=== PATIENT | male | born 1960 | race Native Hawaiian/Other Pacific Islander ===

== ENCOUNTER 2022-06-09 09:29 | Outpatient (CLI) | payer MEDICAID, SELFPAY ==
[2022-06-09 14:01] LABS: Basophils Absolute Auto 0.02 K/uL (0.00-0.30); Basophils Percent Auto 0.3 % (0.0-3.0); Eosinophils Absolute Auto 0.13 K/uL (0.00-0.50); Eosinophils Percent Auto 1.8 % (0.0-7.0); Hematocrit 44.8 % (37.0-53.0); Hemoglobin* 14.8 gm/dL (13.5-17.5); Immature Granulocytes Abs Auto 0.02 K/uL (0.00-0.30); Immature Granulocytes Pct Auto 0.3 %; Lymphocytes Absolute Auto 1.88 K/uL (0.90-2.90); Lymphocytes Percent Auto 26.6 % (20-44); Mean Corpuscular HGB Conc 33 gm/dL (32-36); Mean Corpuscular Hemoglobin 28 pg (26-34); Mean Corpuscular Volume 85 fL (80-100); Monocytes Percent Auto 7.4 % (0.0-11.0); Neutrophils Absolute Auto 4.49 K/uL (1.7-7.0); Neutrophils Percent Auto 63.6 % (42.0-72.0); Platelet Count* 213 K/uL (140-440); RDW Coefficient of Variation % 13.4 % (11.5-15.5); Red Blood Count 5.28 m/uL (4.30-5.90); White Blood Count* 7.06 K/uL (4.50-11.00)
[2022-06-09 14:03] LABS: Slide Review Reflex No
[2022-06-09 14:18] LABS: Chloride* 102 mmol/L (96-114); Potassium* 4.8 mmol/L (3.6-5.1); Sodium* 141 mmol/L (135-149)
[2022-06-09 14:20] LABS: Cholesterol* 239 mg/dL (90-199)
[2022-06-09 14:21] LABS: Alanine Aminotransferase* 31 U/L (4-50); Blood Urea Nitrogen* 20 mg/dL (7-30); Carbon Dioxide* 27 mmol/L (20-32); Estimated Glomerular Filt Rate 85 ml/min; Glucose* 86 mg/dL (60-115); Triglycerides* 119 mg/dL (40-149)
[2022-06-09 14:22] LABS: Calcium* 9.4 mg/dL (8.4-10.6); HDL Cholesterol* 46 mg/dL (>=40); LDL Cholesterol Calculated 169 mg/dL (<100)
[2022-06-09 14:31] LABS: PSA Screen* 2.58 ng/mL (0.10-4.00)
== END 2022-06-09 09:30 | disposition home or self-care (01) ==
PROVIDERS: PCP Family Medicine; Visit Provider Family Medicine
DX: Z00.00 Encounter for general adult medical examination without abnormal findings (principal); I10 Essential (primary) hypertension; E78.5 Hyperlipidemia, unspecified; Z12.5 Encounter for screening for malignant neoplasm of prostate
CPT/HCPCS: 80048; 80061; 84153; 84460; 85025

== ENCOUNTER 2022-10-05 21:09 | Outpatient (CLI) | payer BC, SELFPAY ==
--- NOTE | 2022-10-11 12:43 | W.PM.SLEEP ---
Sleep Study Details Details Interpreting Provider: Vidal Medina MD Date of Sleep Study: 10/05/22 Sleep Study Details: STUDY TYPE:? Hospital with CPAP titration ? BMI:? 35 ORDERING PROVIDER:? Gorge INDICATION:? Concerns about sleep apnea ? SLEEP SUMMARY:? Sleep time 370.5 minutes, efficiency 85.8, arousal index 17.3 RESPIRATORY SUMMARY:? Mean oxygen awake 94 asleep 94 minimum 79, 3.7 minutes oxygen between 80 and 88% AHI 41.6, supine AHI 67.9, nonsupine AHI 16.7. There was no supine REM sleep seen in the baseline portion of the study. The nonsupine REM AHI was 72 CPAP titration was performed to a pressure of 9 including supine REM sleep at a pressure of 8 and decreasing AHI to 1.8 PERIODIC LIMB MOVEMENTS OF SLEEP:? Pretreatment 37.7, index with arousal 0.9 Post treatment index 94.5, index with arousal 1.0 CARDIAC:? Interpolated PVCs were noted heart rate awake 63, asleep 60 IMPRESSION:? Severe obstructive sleep apnea of AHI of 41.6 with supine and REM dependency. CPAP titration was successful at a pressure of 9 Interpolated PVCs. Further cardiac evaluation may be indicated RECOMMENDATION: Initiate CPAP either at pressure of 9 or AutoSet 8-15 with download and follow up in 1 month.
--- NOTE | 2022-10-18 12:13 | W.PM.SLEEP ---
Sleep Study Details Details Interpreting Provider: Vidal Medina MD Date of Sleep Study: 10/05/22 Sleep Study Details: STUDY TYPE:? Hospital with CPAP ? BMI:? 35 ORDERING PROVIDER:? Gorge INDICATION:? Concerns about sleep apnea ? SLEEP SUMMARY:? 370 minutes sleep time Arousal index 17.3 Efficiency 85.8 RESPIRATORY SUMMARY:? AHI 41.6, supine AHI 67.9, nonsupine AHI 16.7. No supine REM sleep was seen in the diagnostic portion of the study. The nonsupine REM AHI was 72 pretreatment. CPAP was titrated to a pressure of 9 decreasing AHI to 1.8. At a pressure of 8 AHI was 4.9 and supine REM sleep was seen. This would be viewed as a successful titration. Mean oxygen awake 94 asleep 94 minimum 79, 3.7 minutes oxygen between 80 and 88% PERIODIC LIMB MOVEMENTS OF SLEEP:? Pretreatment index 37.7, index with arousal 0.9. Post treatment index 94.5, index with arousal 1 CARDIAC:? Awake 63 asleep 60, interpolated PVCs were noted IMPRESSION:? Severe obstructive sleep apnea with both supine and REM dependency. CPAP titration was successful at a pressure of 9 however if pressure of 9 did not include supine REM sleep. Supine REM sleep was seen at a pressure of 8. Interpolated PVCs were were noted. RECOMMENDATION: Initiate CPAP auto set 8-15 with close follow-up.
== END 2022-10-05 21:10 | disposition home or self-care (01) ==
LOC: SLEEP 21:09
PROVIDERS: PCP Family Medicine; Visit Provider Family Medicine
DX: G47.33 Obstructive sleep apnea (adult) (pediatric) (principal)
CPT/HCPCS: 95811

== ENCOUNTER 2024-03-06 08:25 | Outpatient (CLI) | payer BC, SELFPAY | END 2024-03-06 08:26 | disposition home or self-care (01) | LOC: NFLDREF 15:16 | PROVIDERS: PCP Family Medicine; Referring Provider Family Medicine; Visit Provider Family Medicine | DX: I10 Essential (primary) hypertension (principal); E78.2 Mixed hyperlipidemia; Z12.5 Encounter for screening for malignant neoplasm of prostate | CPT/HCPCS: 80048; 80061; G0103 ==

== ENCOUNTER 2025-06-06 01:05 | Outpatient (CLI) | payer MEDICARE, SELFPAY | END 2025-06-06 01:06 | disposition home or self-care (01) | PROVIDERS: PCP Family Medicine; Visit Provider Family Medicine | DX: I10 Essential (primary) hypertension (principal); E78.2 Mixed hyperlipidemia; Z12.5 Encounter for screening for malignant neoplasm of prostate | CPT/HCPCS: 80048; 80061; 85025; G0103 ==